=== PATIENT | male | born 1985 | race Caucasian/White ===

== ENCOUNTER 2017-11-24 09:23 | Emergency (ER) | payer OTHER ==
[~2017-11-24] VITALS: Ht 193 cm; Wt 115.7 kg
[2017-11-24] MEDS ORDERED: NORCO 5-325 TA1 EACH PO (10:17)
[2017-11-24 10:34] VITALS: BP 114/76
== END 2017-11-24 10:36 | disposition home or self-care (01) ==
LOC: M.ERS 09:23
DX: S20.212A Contusion of left front wall of thorax, initial encounter (principal); S00.12XA Contusion of left eyelid and periocular area, initial encounter; S30.0XXA Contusion of lower back and pelvis, initial encounter; F17.210 Nicotine dependence, cigarettes, uncomplicated; Y08.89XA Assault by other specified means, initial encounter; Y93.89 Activity, other specified; Y92.89 Other specified places as the place of occurrence of the external cause; Y99.8 Other external cause status